=== PATIENT | male | born 1955 | race Caucasian/White ===

== ENCOUNTER 2021-06-08 16:00 | Outpatient (CLI) | payer MEDICARE, SELFPAY ==
--- NOTE | ~2021-06-08 | XR_ITS ---
EXAMINATION: XR elbow RT min 3V DATE: 06/08/2021 16:19 INDICATION: Localized swelling, mass or lump at the right elbow TECHNIQUE: Anteroposterior, two oblique and lateral views of the right elbow were obtained. COMPARISON: None. FINDINGS: Alignment is normal. No fracture. Joint spaces are normal. No right elbow joint effusion. Focal soft tissue swelling overlying the dorsal aspect of the proximal ulna. No underlying cortical erosion or p eriosteal reaction. IMPRESSION: 1. Nonspecific focal soft tissue swelling dorsal to the proximal ulna. No osseous abnormality. Reviewed, dictated and finalized at location A. [facility] CLINICAL DATA COORDINATOR IMPRESSION: 1. Nonspecific focal soft tissue swelling dorsal to the proximal ulna. No osseo us abnormality.
== END 2021-06-08 16:01 | disposition home or self-care (01) ==
PROVIDERS: PCP Physician Assistant; Visit Provider Physician Assistant
DX: R22.31 Localized swelling, mass and lump, right upper limb (principal)
CPT/HCPCS: 73080